=== PATIENT | female | born 1970 | race Hispanic/Latino ===

== ENCOUNTER 2022-03-27 07:39 | Inpatient (IN) | payer BC, OTHER ==
[~2022-03-27] VITALS: Ht 165.1 cm; Wt 99.6 kg
[2022-03-27] MEDS ORDERED: KETOROLAC 30MG VIAL (30MG/ML) IVP ONE ×2 (08:00→18:00)
[2022-03-27] MEDS ORDERED: ONDANSETRON 4MG INJ IVP ONE ×2 (08:00→18:00)
[2022-03-27 08:08] LABS: BASOPHILS % (AUTO) 0.2 % (0.0-5.0); EOSINOPHILS % (AUTO) 1.4 % (0.0-8.0); HEMATOCRIT 40.6 % (36-48); MEAN CORPUSCULAR HEMOGLOBIN 30.2 pg (27.0-33.0); MEAN CORPUSCULAR HGB CONC 32.5 g/dL (32.0-36.0); MEAN CORPUSCULAR VOLUME 92.9 fL (79-99); MONOCYTES % (AUTO) 6.6 % (3.0-13.0); NEUTROPHILS % (AUTO) 78.5 % (40.0-77.0); PLATELET COUNT (AUTO) 280 K/uL (130-400); RED BLOOD CELL COUNT(AUTO) 4.37 MIL/uL (4.00-5.50); RED CELL DISTRIBUTION WIDTH 12.6 % (11.0-15.5); WHITE BLOOD COUNT (AUTO) 9.1 K/uL (4.8-10.8)
[2022-03-27 08:18] LABS: CREATININE 1.5 mg/dL (0.5-1.5); POTASSIUM 4.4 mmol/L (3.5-5.1)
[2022-03-27 08:22] LABS: ALBUMIN 3.5 g/dL (3.5-5.0); BILIRUBIN,TOTAL 0.5 mg/dL (0.2-1.0); TOTAL PROTEIN, SERUM 7.3 g/dL (6.0-8.3)
[2022-03-27 08:53] LABS: APPEARANCE,URINE Cloudy (CLEAR); BILIRUBIN,URINE Negative (NEGATIVE); COLOR,URINE Yellow (YELLOW); GLUCOSE, URINE (UA) Negative (NEGATIVE); KETONES,URINE Negative (NEGATIVE); LEUKOCYTE ESTERASE ,URINE Small (NEGATIVE); NITRATE,URINE Negative (NEGATIVE); OCCULT BLOOD,URINE Large (NEGATIVE); PH,URINE 5.5 (5.0-8.0); PROTEIN,URINE POS 1+ mg/dL (NEGATIVE); UROBILINOGEN,URINE 0.2 mg/dL (0.2-1.0)
[2022-03-27 08:58] LABS: RBC,URINE >100 /HPF (0-1)
[2022-03-27 08:59] LABS: BACTERIA,URINE Rare /HPF (None Seen); SQUAMOUS EPITHELIAL CELL,UR Rare /HPF (0-2)
[2022-03-27] MEDS ORDERED: HYDROCODONE/ACETAMINOPHEN 10/325 MG TAB PO ONE (13:00)
[2022-03-27] MEDS ORDERED: 0.9%NACL 1000ML 1,000 ML IV SCH (15:30)
[2022-03-27] MEDS: CEFTRIAXONE 1G VIAL IVP SCH (15:55)
[2022-03-27] MEDS: ONDANSETRON 4MG INJ IVP PRN (15:58)
[2022-03-27] MEDS ORDERED: INSU100C6 SQ (18:30)
[2022-03-27] MEDS ORDERED: losartan PO (18:30)
[2022-03-27] MEDS ORDERED: vitamin d PO (18:30)
[2022-03-27] MEDS ORDERED: LEVO50CA4 PO (18:30)
[2022-03-27 18:40] VITALS: BP 135/66
[2022-03-27] MEDS ORDERED: PROMETHAZINE HCL 25 MG/ML 1ML AMPULE IM PRN (21:00)
[2022-03-27] MEDS ORDERED: KETOROLAC 30MG VIAL (30MG/ML) ONE (21:16)
[2022-03-27] MEDS ORDERED: DEXTROSE 5 % AND 0.9 % NACL 1,000 ML IV SCH (23:00)
[2022-03-27 23:40] VITALS: BP 125/66
[2022-03-28] MEDS ORDERED: KETOROLAC 30MG VIAL (30MG/ML) IVP ONE (03:30)
[2022-03-28] MEDS: ONDANSETRON 4MG INJ IVP PRN (03:43)
[2022-03-28 04:41] VITALS: BP 129/73
[2022-03-28] MEDS ORDERED: PHARMACY COMMUNICATION MISC SCH (07:00)
[2022-03-28] MEDS ORDERED: HYDROMORPHONE 0.5 MG SYG (0.5MG/0.5ML) IVP PRN (07:00)
[2022-03-28] MEDS ORDERED: DiphenhydrAMINE HCL 50 MG/ML VIAL IV PRN (07:00)
[2022-03-28 07:15] LABS: HEMATOCRIT 37.4 % (36-48); MEAN CORPUSCULAR HEMOGLOBIN 30.2 pg (27.0-33.0); MEAN CORPUSCULAR HGB CONC 32.1 g/dL (32.0-36.0); RED BLOOD CELL COUNT(AUTO) 3.98 MIL/uL (4.00-5.50); RED CELL DISTRIBUTION WIDTH 12.6 % (11.0-15.5); WHITE BLOOD COUNT (AUTO) 7.2 K/uL (4.8-10.8)
[2022-03-28 07:30] LABS: CREATININE 1.7 mg/dL (0.5-1.5); POTASSIUM 4.3 mmol/L (3.5-5.1)
[2022-03-28 07:57] VITALS: BP 129/73
[2022-03-28] MEDS: INSULIN LISPRO 100 UNIT/ML 3ML SQ SCH ×3 (11:10→22:30)
[2022-03-28] MEDS: 0.9%NACL 1000ML 1,000 ML IV SCH ×2 (11:11→23:41)
[2022-03-28 11:47] VITALS: BP 129/72
[2022-03-28 15:36] VITALS: BP 138/79
[2022-03-28] MEDS: CEFTRIAXONE 1G VIAL IVP SCH (15:37)
[2022-03-28 19:59] VITALS: BP 146/79
[2022-03-28 23:41] VITALS: BP 106/58
[2022-03-29] VITALS (21 sets, daily range): BP systolic 102–143; BP diastolic 50–80
[2022-03-29 04:09] LABS: HEMATOCRIT 34.3 % (36-48); MEAN CORPUSCULAR HEMOGLOBIN 30.4 pg (27.0-33.0); MEAN CORPUSCULAR HGB CONC 32.7 g/dL (32.0-36.0); MEAN CORPUSCULAR VOLUME 93.2 fL (79-99); RED BLOOD CELL COUNT(AUTO) 3.68 MIL/uL (4.00-5.50); RED CELL DISTRIBUTION WIDTH 12.5 % (11.0-15.5); WHITE BLOOD COUNT (AUTO) 7.3 K/uL (4.8-10.8)
[2022-03-29 04:23] LABS: CREATININE 1.6 mg/dL (0.5-1.5); POTASSIUM 4.4 mmol/L (3.5-5.1)
[2022-03-29] MEDS: INSULIN LISPRO 100 UNIT/ML 3ML SQ SCH ×3 (07:30→16:30)
[2022-03-29] MEDS: 0.9%NACL 1000ML 1,000 ML IV SCH (09:40)
[2022-03-29] MEDS ORDERED: IOHEXOL-350 50ML VIAL IV ONE ×2 (11:51→19:31)
[2022-03-29] MEDS ORDERED: LIDOCAINE PF 100MG/5ML (2%) SYRINGE 5ML ONE (12:51)
[2022-03-29] MEDS ORDERED: SUCCINYLCHOLINE CHLORIDE 20 MG/ML 10 ML VIAL ONE (12:51)
[2022-03-29] MEDS ORDERED: ONDANSETRON 4MG INJ ONE ×2 (12:51→18:32)
[2022-03-29] MEDS ORDERED: SUCCINYLCHOLINE 200MG/10ML SYR ONE (12:51)
[2022-03-29] MEDS ORDERED: PROPOFOL 10 MG/ML 20ML VIAL IV ONE ×2 (12:52→21:27)
[2022-03-29] MEDS ORDERED: DEXAMETHASONE SOD PHOSPHATE 10MG/ML 1ML VIAL ONE (12:52)
[2022-03-29] MEDS ORDERED: NEOSTIGMINE 5MG/5ML SYR IV ONE (12:52)
[2022-03-29] MEDS ORDERED: MIDAZOLAM HCL 1 MG/ML 2ML VIAL ONE ×2 (12:52→18:29)
[2022-03-29] MEDS ORDERED: ROCURONIUM 10MG/1ML SYR 10 MG/ML ML ONE (12:52)
[2022-03-29] MEDS ORDERED: GLYCOPYRROLATE 1 MG/5 ML SYRINGE ONE (12:52)
[2022-03-29] MEDS ORDERED: FENTANYL CITRATE PF 50 MCG/1 ML 2ML VIAL ONE ×2 (12:53→18:30)
[2022-03-29] MEDS: CEFTRIAXONE 1G VIAL IVP SCH (18:51)
[2022-03-29] MEDS ORDERED: MEPERIDINE-PF 25 MG/ML SYG ONE (21:24)
[2022-03-29] MEDS ORDERED: TRAMADOL HCL 50 MG TABLET PO PRN (23:45)
[2022-03-30 00:15] VITALS: BP 124/73
[2022-03-30 00:45] VITALS: BP 136/82
[2022-03-30 01:45] VITALS: BP 140/79
[2022-03-30 02:45] VITALS: BP 117/67
[2022-03-30 03:45] VITALS: BP 126/68
[2022-03-30 07:44] VITALS: BP 146/51
[2022-03-30] MEDS ORDERED: TAMSULOSIN HCL 0.4 MG CAP.ER.24H PO SCH (09:00)
== END 2022-03-30 09:41 | disposition home or self-care (01) | DRG 661 ==
LOC: EDH 07:39 → EDHIP 14:12 → 4AH 17:47
PROVIDERS: ADMIT Family Medicine; ATTEND Family Medicine
PROC: 0TF78ZZ Fragmentation in Left Ureter, Via Natural or Artificial Opening Endoscopic (ICD-10-PCS; 2022-03-29)
PROC: 0T778DZ Dilation of Left Ureter with Intraluminal Device, Via Natural or Artificial Opening Endoscopic (ICD-10-PCS; principal; 2022-03-29 19:25)
PROC: BT1F1ZZ Fluoroscopy of Left Kidney, Ureter and Bladder using Low Osmolar Contrast (ICD-10-PCS; 2022-03-29 19:25)
DX: N13.2 Hydronephrosis with renal and ureteral calculous obstruction (principal); N17.9 Acute kidney failure, unspecified; Z20.822 Contact with and (suspected) exposure to COVID-19; Z88.8 Allergy status to other drugs, medicaments and biological substances; Z87.442 Personal history of urinary calculi; Z90.49 Acquired absence of other specified parts of digestive tract; E03.9 Hypothyroidism, unspecified; E10.9 Type 1 diabetes mellitus without complications; K86.9 Disease of pancreas, unspecified
CPT/HCPCS: 36415; 74018; 74176; 80048; 80053; 81001; 82948; 85025; 85027; 86316; 87088; 87635; A4344; C1758; C1769; C2617; G0378; J0330; J0696; J1100; J1170; J1885; J2001; J2175; J2250; J2405; J2704; J2710; J3010; J3490; J7030; J7042; Q9967

== ENCOUNTER 2022-08-21 06:09 | Day surgery (SDC) | payer BC ==
[2022-08-20 11:13] LABS: BASOPHILS % (AUTO) 0.3 % (0.0-5.0); EOSINOPHILS % (AUTO) 1.2 % (0.0-8.0); HEMATOCRIT 39.5 % (36-48); LYMPHOCYTES % (AUTO) 20.7 % (21.0-51.0); MEAN CORPUSCULAR HGB CONC 31.6 g/dL (32.0-36.0); MEAN CORPUSCULAR VOLUME 94.7 fL (79-99); MONOCYTES % (AUTO) 5.3 % (3.0-13.0); NEUTROPHILS % (AUTO) 72.2 % (40.0-77.0); PLATELET COUNT (AUTO) 308 K/uL (130-400); RED BLOOD CELL COUNT(AUTO) 4.17 MIL/uL (4.00-5.50); RED CELL DISTRIBUTION WIDTH 12.9 % (11.0-15.5); WHITE BLOOD COUNT (AUTO) 7.3 K/uL (4.8-10.8)
[2022-08-20 11:22] LABS: CREATININE 0.9 mg/dL (0.5-1.5); POTASSIUM 4.8 mmol/L (3.5-5.1)
[2022-08-20 12:23] VITALS: BP 126/75
[~2022-08-21] VITALS: Ht 162.6 cm; Wt 97.2 kg
[2022-08-21] VITALS (18 sets, daily range): BP systolic 106–133; BP diastolic 62–75
[~2022-08-21 06:09] MED LIST: INSU100C6 SQ; KCIT5T PO; LEVO50CA4 PO; losartan PO; vitamin d PO
[2022-08-21] MEDS ORDERED: GENTAMICIN 80 MG/NS 100 ML PB 100 ML IV SCH (08:00)
[2022-08-21] MEDS ORDERED: 0.9%NACL 1000ML 1,000 ML IV ONE (08:27)
[2022-08-21] MEDS: CEFTRIAXONE 1G VIAL IVP ONE ×2 (09:04→10:36)
[2022-08-21] MEDS ORDERED: IOHEXOL-350 50ML VIAL IV ONE (09:20)
[2022-08-21] MEDS ORDERED: DEXAMETHASONE SOD PHOSPHATE 10MG/ML 1ML VIAL ONE (10:30)
[2022-08-21] MEDS ORDERED: MIDAZOLAM HCL 1 MG/ML 2ML VIAL ONE (10:30)
[2022-08-21] MEDS ORDERED: PROPOFOL 10 MG/ML 20ML VIAL IV ONE (10:31)
[2022-08-21] MEDS ORDERED: ROCURONIUM 10MG/1ML SYR 10 MG/ML ML ONE (10:31)
[2022-08-21] MEDS ORDERED: KETOROLAC 30MG VIAL (30MG/ML) ONE (10:31)
[2022-08-21] MEDS ORDERED: ONDANSETRON 4MG INJ ONE (10:31)
[2022-08-21] MEDS ORDERED: FENTANYL CITRATE PF 50 MCG/1 ML 2ML VIAL ONE (10:32)
[2022-08-21] MEDS ORDERED: ISOVUE-370 50ML VIAL IV ONE (10:53)
== END 2022-08-21 13:15 | disposition home or self-care (01) ==
LOC: DAH 06:09
PROVIDERS: ATTEND Urology
DX: N20.1 Calculus of ureter (principal); Z20.822 Contact with and (suspected) exposure to COVID-19; I10 Essential (primary) hypertension; E03.9 Hypothyroidism, unspecified; E11.9 Type 2 diabetes mellitus without complications; E66.9 Obesity, unspecified; Z98.890 Other specified postprocedural states; Z79.01 Long term (current) use of anticoagulants; Z91.040 Latex allergy status; Z88.8 Allergy status to other drugs, medicaments and biological substances; Z79.899 Other long term (current) drug therapy; Z98.891 History of uterine scar from previous surgery
CPT/HCPCS: 87426; 80048; 84703; 85025; 36415; 52005; 74420; 82948 ×2; 93005; 74018; A6260; A4663; J7030 ×2; C1758; Q9967 ×2; J3010; J1100; J0696; J2250; J2704; J2405; J1885; J1580; A4358; C1769; A4930; A4215; A4223; A4222; A4221; A4510

== ENCOUNTER 2022-10-06 19:33 | Emergency (ER) | payer BC ==
[~2022-10-06] VITALS: Ht 162.6 cm; Wt 94.3 kg
[2022-10-06 21:28] LABS: APPEARANCE,URINE CLOUDY (CLEAR); BILIRUBIN,URINE NEGATIVE (NEGATIVE); COLOR,URINE YELLOW (YELLOW); GLUCOSE, URINE (UA) NEGATIVE (NEGATIVE); KETONES,URINE 20 mg/dL (NEGATIVE); LEUKOCYTE ESTERASE ,URINE 75 Leu/uL (NEGATIVE); NITRATE,URINE NEGATIVE (NEGATIVE); OCCULT BLOOD,URINE LARGE (NEGATIVE); PROTEIN,URINE 50 mg/dL (NEGATIVE); UROBILINOGEN,URINE 0.2 mg/dL (0.2-1.0)
[2022-10-06] MEDS ORDERED: PHARMACY COMMUNICATION MISC SCH (21:30)
[2022-10-06] MEDS ORDERED: 0.9%NACL 1000ML 1,000 ML IV ONE (21:30)
[2022-10-06 21:38] LABS: BACTERIA,URINE RARE /HPF (None Seen); MUCUS,URINE RARE LPF (None Seen); RBC,URINE >100 /HPF (0-1); SQUAMOUS EPITHELIAL CELL,UR FEW /HPF (0-2)
[2022-10-06 21:46] LABS: BASOPHILS % (AUTO) 0.2 % (0.0-5.0); EOSINOPHILS % (AUTO) 2.1 % (0.0-8.0); HEMATOCRIT 35.8 % (36-48); MEAN CORPUSCULAR HEMOGLOBIN 30.5 pg (27.0-33.0); MEAN CORPUSCULAR HGB CONC 32.1 g/dL (32.0-36.0); MONOCYTES % (AUTO) 6.3 % (3.0-13.0); PLATELET COUNT (AUTO) 272 K/uL (130-400); RED BLOOD CELL COUNT(AUTO) 3.77 MIL/uL (4.00-5.50); RED CELL DISTRIBUTION WIDTH 12.5 % (11.0-15.5); WHITE BLOOD COUNT (AUTO) 8.2 K/uL (4.8-10.8)
[2022-10-06 21:54] LABS: CREATININE 0.9 mg/dL (0.5-1.5); POTASSIUM 3.9 mmol/L (3.5-5.1)
[2022-10-06 22:05] LABS: TOTAL PROTEIN, SERUM 6.7 g/dL (6.0-8.3)
[2022-10-06] MEDS ORDERED: LIDOCAINE HCL MPF 1% 5ML VIAL ONE (23:50)
[2022-10-07] VITALS: BP 133/73
[2022-10-07] MEDS ORDERED: KETOROLAC 30MG VIAL (30MG/ML) IVP ONE (00:30)
== END 2022-10-07 00:24 | disposition left against medical advice (07) ==
LOC: EDH 19:33
DX: N23 Unspecified renal colic (principal); E11.9 Type 2 diabetes mellitus without complications; E03.9 Hypothyroidism, unspecified; R11.0 Nausea; Z87.442 Personal history of urinary calculi; Z90.49 Acquired absence of other specified parts of digestive tract; Z88.5 Allergy status to narcotic agent; Z88.8 Allergy status to other drugs, medicaments and biological substances
CPT/HCPCS: 99284; 96360; 76770; 84550; 80053; 85025; 87088; 81001; 36415; J7030; J3490; 96361; 96374